=== PATIENT | male | born 1995 | race Caucasian/White ===

== ENCOUNTER 2021-02-27 17:13 | Emergency (ER) | payer BC, OTHER ==
[~2021-02-27] VITALS: Ht 175.3 cm; Wt 99.3 kg
--- NOTE | 2021-02-27 18:53 | ED Upper Extremity ---
General Chief Complaint: Laceration Stated Complaint: LT THUMB LAC Nursing Triage Note: Patient states he was cutting potatoes 3 hours ago and cut his left thumb with a knife. Patient is lethargic, states he has had 5 shots of Martiniquais Honey today. Source: patient Exam Limitations: intoxication History of Present Illness Date Seen by Provider: Feb 27, 2021 Time Seen by Provider: 16:15 Initial Comments This 25-year-old young man presents to the emergency room with a skin avulsion on the left thumb. He slipped while peeling potatoes with a knife. He was concerned about the extent of bleeding at the time of the injury. There is no bleeding at this time. He did drink alcohol prior to arrival and seems intoxicated but is alert and oriented. Allergies and Home Medications Allergies Coded Allergies: No Known Drug Allergies (Unverified , 02/27/21) Patient Home Medication List Home Medication List Reviewed: Yes Review of Systems Constitutional: see HPI EENTM: no symptoms reported Respiratory: no symptoms reported Cardiovascular: no symptoms reported Gastrointestinal: no symptoms reported Genitourinary: no symptoms reported Musculoskeletal: no symptoms reported Skin: see HPI Past Nvtwier-Fddctz-Zsbubs Hx Patient Social History Tobacco Use?: Yes Tobacco type used: Cigarettes Smoking Status: Current Everyday Smoker Use of E-Cig and/or Vaping dev: Yes Substance use?: No Alcohol Use?: Yes Alcohol type: Hard Liquor Alcohol Frequency: Daily Pt feels they are or have been: No Past Medical History Surgeries: No (none reported) Respiratory: No Cardiac: No Neurological: No Genitourinary: No Gastrointestinal: No Musculoskeletal: No Endocrine: No HEENT: No Cancer: No Physical Exam Vital Signs Vital Signs - First Documented 02/27/21 17:28 Temp 36.4 Pulse 93 Resp 16 B/P (MAP) 143/80 (101) Pulse Ox 98 O2 Delivery Room Air Capillary Refill : Less Than 3 Seconds Height, Weight, BMI Height: '" Weight: lbs. oz. kg; 32.00 BMI Method: General Appearance: WD/WN, other (Intoxicated) HEENT: normal ENT inspection Respiratory: no respiratory distress Hand: non-tender, normal ROM, Left (Minor skin avultion no longer bleeding) Procedures/Interventions Progress After discussing options with the patient. He elects to have the superficial skin flap removed and glue applied. The superficial skin was trimmed off with scissors. Wound was scrubbed with chlorhexidine and saline. There was no active bleeding. Glue was then applied over the top to protect the wound. Progress/Results/Core Measures Results/Orders Vital Signs/I&O Blood Pressure Mean: 101 Departure Impression Primary Impression: Skin avulsion Additional Impression: Alcohol intoxication Qualified Codes: F10.920 - Alcohol use, unspecified with intoxication, uncomplicated Disposition: 01 HOME, SELF-CARE Condition: Improved Departure-Patient Inst. Decision time for Depature: 18:51 Referrals: NO,LOCAL PHYSICIAN (PCP/Family) Primary Care Physician Patient Instructions: Laceration Repair With Glue (DC) Add. Discharge Instructions: Keep the wound clean and dry for the next few days. Allow the glue to slough off naturally. Do not pull the glue off as this may trigger more bleeding and pull off healing skin. You may cover the wound with a large Band-Aid, gauze, etc. Avoid contacting the glue with adhesives or solvents such as alcohol as this may soften the glue or cause it to dissolve. Monitor your wound for signs of infection such as increasing redness, increasing swelling, puslike drainage, etc. Return to care if you notice the symptoms. You may use Tylenol and/or ibuprofen for pain. All discharge instructions reviewed with patient and/or family. Voiced understanding. VIPUL CHAHAL MD Feb 27, 2021 18:53
[2021-02-27 18:58] VITALS: BP 143/80
== END 2021-02-27 18:58 | disposition home or self-care (01) ==
LOC: EDUNIT# 17:13 → ER FS 17:15
DX: S61.002A Unspecified open wound of left thumb without damage to nail, initial encounter (principal); F10.129 Alcohol abuse with intoxication, unspecified; F17.210 Nicotine dependence, cigarettes, uncomplicated; W26.0XXA Contact with knife, initial encounter

== ENCOUNTER 2022-04-18 15:04 | Emergency (ER) | payer SELFPAY ==
[~2022-04-18] VITALS: Ht 175.3 cm; Wt 97.5 kg
--- NOTE | 2022-04-18 15:28 | ED Chest Pain ---
General Chief Complaint: Chest Pain Stated Complaint: CHEST PAINS/SOB Nursing Triage Note: PT AMB TO RM 4 WITH COMPLAINT OF CP, COUGH. STATES PAIN STARTED TODAY. Source: patient Exam Limitations: no limitations History of Present Illness Date Seen by Provider: Apr 18, 2022 Time Seen by Provider: 15:28 Allergies and Home Medications Allergies Coded Allergies: No Known Drug Allergies (Unverified , 02/27/21) Past Qzazytn-Qdxmge-Wrzxjs Hx Patient Social History Tobacco Use?: Yes Tobacco type used: Cigarettes Smoking Status: Current Everyday Smoker Use of E-Cig and/or Vaping dev: Yes Substance use?: No Alcohol Use?: Yes Alcohol Frequency: Couple times a week Pt feels they are or have been: No Past Medical History Surgeries: No (none reported) Respiratory: No Cardiac: No Neurological: No Genitourinary: No Gastrointestinal: No Musculoskeletal: No Endocrine: No HEENT: No Cancer: No Physical Exam Vital Signs Vital Signs - First Documented 04/18/22 15:06 Temp 37.0 Pulse 87 Resp 27 B/P (MAP) 189/129 (149) Pulse Ox 97 O2 Delivery Room Air Capillary Refill : Less Than 3 Seconds Height, Weight, BMI Height: '" Weight: lbs. oz. kg; 31.00 BMI Method: Progress/Results/Core Measures Results/Orders Lab Results Laboratory Tests Test 04/18/22 15:20 04/18/22 15:37 Range/Units Influenza Type A (RT-PCR) Not Detected Not Detecte Influenza Type B (RT-PCR) Not Detected Not Detecte SARS-CoV-2 RNA (RT-PCR) Not Detected Not Detecte D-Dimer <= 0.27 0.00-0.49 UG/ML My Orders Orders - MOHAN MARIANO COOK [employer] Covid 19 Inhouse Test (04/18/22 15:14) Influenza A And B By Pcr (04/18/22 15:14) Fibrin Degradation Products (04/18/22 15:27) Chest 1 View, Ap/Pa Only (04/18/22 16:13) Rx-Albuterol Inhaler (Rx-Ventolin Hfa In (04/18/22 16:26) Vital Signs/I&O 04/18/22 15:06 Temp 37.0 Pulse 87 Resp 27 B/P (MAP) 189/129 (149) Pulse Ox 97 O2 Delivery Room Air Blood Pressure Mean: 149 Departure Impression Primary Impression: Asthma Additional Impression: Chest pain Disposition: 01 HOME, SELF-CARE Condition: Stable/Unchanged Departure-Patient Inst. Decision time for Depature: 16:46 Referrals: NO,LOCAL PHYSICIAN (PCP/Family) Primary Care Physician Patient Instructions: Asthma, Adult ED Add. Discharge Instructions: Plan: 1. Establish with a primary care provider of your choice. It would be beneficial for you to have a pulmonary function test. 2. Use albuterol 2 puffs every 4 hours as needed for shortness of breath and wheezing. 3. I strongly encourage you to quit smoking this will exacerbate your asthma and decrease your risk of developing COPD. 4. Take steroids daily as directed with food. This may help with some of the discomfort you are having. 5. If you have any new, concerning, worsening symptoms please return to the ER. All discharge instructions reviewed with patient and/or family. Voiced understanding. Scripts Methylprednisolone (Methylprednisolone Dose Pack) 4 Mg Tab.ds.pk 4 MG PO UD for 6 Days, #21 PKG 0 Refills PER DOSE PACK INSTRUCTIONS Prov: MOHAN MARIANO [employer] 04/18/22 MOHAN MARIANO [employer] Apr 18, 2022 15:28
[2022-04-18] MEDS ORDERED: RX-ALBUTEROL INHALER 8.5 GM HFA (PROAIR) IH STA (16:26)
--- NOTE | 2022-04-18 16:29 | Diagnostic Imaging Report ---
INDICATION: Chest pain. COMPARISON: None. FINDINGS: Single frontal view of the chest demonstrates normal heart size and pulmonary vascularity. The lungs are well aerated and clear. No large pleural effusion or pneumothorax is seen. The visualized osseous structures show no acute abnormalities. IMPRESSION: 1. No acute cardiopulmonary process. Dictated by: Dictated on workstation # [id number]
[2022-04-18] MEDS ORDERED: METH4TAB10 PO (16:48)
[2022-04-18 16:52] VITALS: BP 164/118
== END 2022-04-18 16:52 | disposition home or self-care (01) ==
LOC: EDUNIT# 15:04 → ER 15:06
DX: J45.909 Unspecified asthma, uncomplicated (principal); F17.210 Nicotine dependence, cigarettes, uncomplicated; Z20.822 Contact with and (suspected) exposure to COVID-19
CPT/HCPCS: 36415; 71045; 85379; 87636; 93005

== ENCOUNTER 2023-03-31 22:33 | Emergency (ER) | payer SELFPAY ==
[~2023-03-31] VITALS: Ht 175.2 cm; Wt 90.7 kg
[~2023-03-31 22:33] MED LIST: METH4TAB10 PO
[2023-03-31] MEDS ORDERED: ONDANSETRON INJECTION 4 MG/2 ML (SDV) ONE (23:32)
[2023-03-31] MEDS ORDERED: NS IV 1000 ML 1,000 ML IV STA (23:35)
[2023-03-31 23:45] LABS: BASOPHILS % (AUTO) 0 % (0-10); EOSINOPHILS # (AUTO) 0.1 10^3/uL (0.0-0.3); EOSINOPHILS % (AUTO) 1 % (0-10); HEMATOCRIT 46 % (40-54); HEMOGLOBIN 15.4 g/dL (13.3-17.7); LYMPHOCYTES # (AUTO) 1.8 10^3/uL (1.0-4.0); LYMPHOCYTES % (AUTO) 23 % (12-44); MEAN CORPUSCULAR HEMOGLOBIN 32 pg (25-34); MEAN CORPUSCULAR HGB CONC 33 g/dL (32-36); MEAN CORPUSCULAR VOLUME 95 fL (80-99); MEAN PLATELET VOLUME 9.2 fL (9.0-12.2); MONOCYTES # (AUTO) 0.8 10^3/uL (0.0-1.0); MONOCYTES % (AUTO) 10 % (0-12); NEUTROPHILS # (AUTO) 5.2 10^3/uL (1.8-7.8); NEUTROPHILS % (AUTO) 66 % (42-75); PLATELET COUNT 259 10^3/uL (130-400); WHITE BLOOD COUNT 7.9 10^3/uL (4.3-11.0)
[2023-03-31] MEDS ORDERED: ONDANSETRON INJECTION 4 MG/2 ML (SDV) IVP ONE (23:45)
[2023-03-31 23:48] LABS: ALBUMIN 4.5 GM/DL (3.2-4.5); CHLORIDE 108 MMOL/L (98-107); POTASSIUM 3.5 MMOL/L (3.6-5.0); SODIUM 143 MMOL/L (135-145)
[2023-03-31 23:49] LABS: CALCIUM 9.9 MG/DL (8.5-10.1)
[2023-03-31 23:51] LABS: GLUCOSE 76 MG/DL (70-105); TOTAL PROTEIN 7.5 GM/DL (6.4-8.2)
--- NOTE | 2023-03-31 23:51 | ED General ---
General Chief Complaint: Altered Mental Status Stated Complaint: BODYACHES/VOMITING Nursing Triage Note: PT RESPONSIVE TO VERBAL STIMULI; PTS GIRLFRIEND REPORTS FINDING PT WITH ALTERED LOC WHEN SHE CAME HOME FROM WORK; PT REPORTS THAT HE TAKES 30MG OXYCODONE AND HAS CONTINUED TO HAVE PAIN ALL OVER; PT DENIES ANY ADDITIONAL OXYCODONE DOSES BUT DOES ADVISE THAT HE DRANK SOME ALCOHOL TODAY; PT ABLE TO PROTECT OWN AIRWAY BUT NOTED TO BE LETHARGIC Source of Information: Patient Exam Limitations: Intoxication History of Present Illness Date Seen by Provider: Mar 31, 2023 Time Seen by Provider: 23:35 Initial Comments Here with report of concerns of withdrawal. Apparently he was triaged and then in the waiting room became unresponsive or nearly unresponsive requiring sternal rubs. He was brought to the bed. We had to assist him from the wheelchair to the bed and then he became a little bit more responsive. Reports that he is withdrawing from oxycodone and he has not had it in a couple of days. Does report vomiting and diarrhea. Admits to drinking alcohol tonight to help with the withdrawal symptoms. Was taking oxycodone 30s. Denies injury. Denies fever or chills. Denies breathing problems. Timing/Duration: 1-2 Days, Getting Worse Severity: Moderate Associated Systoms: No Chest Pain, No Cough, No Fever/Chills; Nausea/Vomiting; No Shortness of Air; Weakness Allergies and Home Medications Allergies Coded Allergies: No Known Drug Allergies (Unverified , 02/27/21) Patient Home Medication List Home Medication List Reviewed: Yes Clonidine HCl (Clonidine HCl) 0.1 Mg Tablet, 0.1 MG PO BID Prescribed by: FOREST CHRISTIANSON on 04/01/23 0148 Methylprednisolone (Methylprednisolone Dose Pack) 4 Mg Tab.ds.pk, 4 MG PO UD Prescribed by: MOHAN MARIANO on 04/18/22 1648 Review of Systems Review of Systems Constitutional: see HPI; No chills, No fever EENTM: No nose congestion, No throat pain Respiratory: No cough, No short of breath Cardiovascular: No chest pain Gastrointestinal: diarrhea, nausea, vomiting Genitourinary: no symptoms reported Musculoskeletal: no symptoms reported Psychiatric/Neurological: Weakness Past Xerxodg-Kduica-Ktsdpa Hx Patient Social History Tobacco Use?: Yes Tobacco type used: Cigarettes Smoking Status: Current Everyday Smoker Use of E-Cig and/or Vaping dev: Yes E-Cig or Vaping type used: Nicotine Substance use?: Yes Substance type: Marijuana Substance frequency: Daily Alcohol Use?: Yes Alcohol type: Beer, Hard Liquor Alcohol Frequency: Couple times a week Pt feels they are or have been: No Immunizations Up To Date First/Initial COVID19 Vaccinat: 2020 Second COVID19 Vaccination Oracio: 2020 Past Medical History Surgery/Hospitalization HX: ASTHMA Surgeries: No (none reported) Respiratory: No Cardiac: No Neurological: No Genitourinary: No Gastrointestinal: No Musculoskeletal: No Endocrine: No HEENT: No Cancer: No Family Medical History Reviewed Nursing Family Hx No Pertinent Family Hx Physical Exam Vital Signs Vital Signs - First Documented 03/31/23 23:09 Temp 37.2 Pulse 67 Resp 16 B/P (MAP) 138/82 (100) Pulse Ox 98 O2 Delivery Room Air Capillary Refill : Less Than 3 Seconds Height, Weight, BMI Height: '" Weight: lbs. oz. kg; 29.00 BMI Method: General Appearance: No Apparent Distress, WD/WN HEENT: PERRL/EOMI, Pharynx Normal, Moist Mucous Membranes, Other (Dilated pupils bilateral) Neck: Non Tender, Supple Respiratory: Lungs Clear, Normal Breath Sounds Cardiovascular: Regular Rate, Rhythm, No Murmur Gastrointestinal: Non Tender, Soft Back: Normal Inspection, No CVA Tenderness Neurologic/Psychiatric: Alert, Other (Sleepy but answers questions appropriately and follows commands) Skin: Normal Color, Warm/Dry Progress/Results/Core Measures Suspected Sepsis SIRS Temperature: Pulse: 67 Respiratory Rate: 16 Laboratory Tests 03/31/23 23:25: White Blood Count 7.9 Blood Pressure 138 /82 Mean: 100 Laboratory Tests 03/31/23 23:25: Creatinine 1.05, Platelet Count 259, Total Bilirubin 0.2 Results/Orders Lab Results Laboratory Tests Test 03/31/23 01:03 03/31/23 23:25 Range/Units Urine Color YELLOW Urine Clarity CLEAR Urine pH 6.0 5-9 Urine Specific [place] 1.020 1.016-1.022 Urine Protein NEGATIVE NEGATIVE Urine Glucose (UA) NEGATIVE NEGATIVE Urine Ketones TRACE H NEGATIVE Urine Nitrite NEGATIVE NEGATIVE Urine Bilirubin NEGATIVE NEGATIVE Urine Urobilinogen 0.2 < = 1.0 MG/DL Urine Leukocyte Esterase NEGATIVE NEGATIVE Urine RBC (Auto) NEGATIVE NEGATIVE Urine RBC 0-2 /HPF Urine WBC NONE /HPF Urine Squamous Epithelial Cells 0-2 /HPF Urine Renal Epithelial Cells NONE /HPF Urine Crystals PRESENT H /LPF Urine Calcium Oxalate Crystals MODERATE H /LPF Urine Bacteria NEGATIVE /HPF Urine Casts NONE /LPF Urine Mucus MODERATE H /LPF Urine Culture Indicated NO Urine Opiates Screen POSITIVE H NEGATIVE Urine Oxycodone Screen NEGATIVE NEGATIVE Urine Methadone Screen NEGATIVE NEGATIVE Urine Propoxyphene Screen NEGATIVE NEGATIVE Urine Barbiturates Screen NEGATIVE NEGATIVE Ur Tricyclic Antidepressants Screen NEGATIVE NEGATIVE Urine Phencyclidine Screen NEGATIVE NEGATIVE Urine Amphetamines Screen NEGATIVE NEGATIVE Urine Methamphetamines Screen POSITIVE H NEGATIVE Urine Benzodiazepines Screen NEGATIVE NEGATIVE Urine Cocaine Screen POSITIVE H NEGATIVE Urine Cannabinoids Screen POSITIVE H NEGATIVE White Blood Count 7.9 4.3-11.0 10^3/uL Red Blood Count 4.89 4.30-5.52 10^6/uL Hemoglobin 15.4 13.3-17.7 g/dL Hematocrit 46 40-54 % Mean Corpuscular Volume 95 80-99 fL Mean Corpuscular Hemoglobin 32 25-34 pg Mean Corpuscular Hemoglobin Concent 33 32-36 g/dL Red Cell Distribution Width 12.9 10.0-14.5 % Platelet Count 259 130-400 10^3/uL Mean Platelet Volume 9.2 9.0-12.2 fL Immature Granulocyte % (Auto) 0 % Neutrophils (%) (Auto) 66 42-75 % Lymphocytes (%) (Auto) 23 12-44 % Monocytes (%) (Auto) 10 0-12 % Eosinophils (%) (Auto) 1 0-10 % Basophils (%) (Auto) 0 0-10 % Neutrophils # (Auto) 5.2 1.8-7.8 10^3/uL Lymphocytes # (Auto) 1.8 1.0-4.0 10^3/uL Monocytes # (Auto) 0.8 0.0-1.0 10^3/uL Eosinophils # (Auto) 0.1 0.0-0.3 10^3/uL Basophils # (Auto) 0.0 0.0-0.1 10^3/uL Immature Granulocyte # (Auto) 0.0 0.0-0.1 10^3/uL Sodium Level 143 135-145 MMOL/L Potassium Level 3.5 L 3.6-5.0 MMOL/L Chloride Level 108 H 98-107 MMOL/L Carbon Dioxide Level 21 21-32 MMOL/L Anion Gap 14 5-14 MMOL/L Blood Urea Nitrogen 6 L 7-18 MG/DL Creatinine 1.05 0.60-1.30 MG/DL Estimat Glomerular Filtration Rate 100 BUN/Creatinine Ratio 6 Glucose Level 76 70-105 MG/DL Calcium Level 9.9 8.5-10.1 MG/DL Corrected Calcium 9.5 8.5-10.1 MG/DL Magnesium Level 2.0 1.6-2.4 MG/DL Total Bilirubin 0.2 0.1-1.0 MG/DL Aspartate Amino Transf (AST/SGOT) 25 5-34 U/L Alanine Aminotransferase (ALT/SGPT) 29 0-55 U/L Alkaline Phosphatase 60 40-136 U/L C-Reactive Protein High Sensitivity 0.06 0.00-0.50 MG/DL Total Protein 7.5 6.4-8.2 GM/DL Albumin 4.5 3.2-4.5 GM/DL Salicylates Level < 5.0 L 5.0-20.0 MG/DL Acetaminophen Level 27 10-30 UG/ML Serum Alcohol < 10 <10 MG/DL My Orders Orders - FOREST CHRISTIANSON MD Ondansetron Injection (Ondansetron Inj (03/31/23 23:32) Ondansetron Injection (Ondansetron Inj (03/31/23 23:45) Ns Iv 1000 Ml (Ns Iv 1000 Ml) (03/31/23 23:35) Ed Iv/Invasive Line Start (03/31/23 23:35) Acetaminophen (03/31/23 23:35) Alcohol (03/31/23 23:35) Cbc And Automated Diff (03/31/23 23:35) Comprehensive Metabolic Panel (03/31/23 23:35) Hs C Reactive Protein (03/31/23 23:35) Drug Screen Stat (Urine) (03/31/23 23:35) Magnesium (03/31/23 23:35) Salicylate (03/31/23 23:35) Ua Culture If Indicated (03/31/23 23:35) Ns Iv 1000 Ml (Ns Iv 1000 Ml) (04/01/23 01:45) Clonidine Tablet (Clonidine Tablet) (04/01/23 01:45) Medications Given in ED Current Medications Medications Dose Ordered Sig/Owen Route Start Time Stop Time Status Last Admin Dose Admin Clonidine HCl 0.1 mg ONCE ONCE PO 04/01/23 01:45 04/01/23 01:46 DC 04/01/23 02:13 0.1 MG Ondansetron HCl 8 mg ONCE ONCE IVP 03/31/23 23:45 03/31/23 23:46 DC 03/31/23 23:55 8 MG Sodium Chloride 1,000 ml @ 0 mls/hr Q0M ONCE IV 04/01/23 01:45 04/01/23 01:46 DC 04/01/23 02:12 1,000 MLS/HR Vital Signs/I&O 03/31/23 23:09 Temp 37.2 Pulse 67 Resp 16 B/P (MAP) 138/82 (100) Pulse Ox 98 O2 Delivery Room Air Capillary Refill : Less Than 3 Seconds Blood Pressure Mean: 100 Progress Note : Progress Note Seen and evaluated. IV, labs including CBC, CMP, Tylenol, salicylate, alcohol as well as UA and UDS ordered. Normal saline 1 L bolus, Zofran 8 mg IV ordered. Monitor patient. Differential diagnosis includes electrolyte abnormality, dehydration, toxic effect of benzodiazepines or alcohol 0140: Labs reviewed and Tylenol, salicylate and alcohol are negative. His UDS was positive for cocaine, methamphetamine, marijuana and opiates. CBC reviewed and is normal. Chemistry reviewed and potassium is 3.5 but otherwise normal with normal LFTs. UA shows trace ketones. He was somewhat confused earlier but is doing better now. I did discuss with him about addiction treatment services at [facility]. He did not know what to access for narcotic abuse. He would like to try that. His significant other is with him and they are both in agreement. We will repeat normal saline 1 L bolus due to ketones and give clonidine 0.1 mg p.o. now for the withdrawal. Given his mixed drug use over the last 2 days, Suboxone therapy to start here in the ED is not appropriate but could be started in the outpatient setting. I did discuss with him about this and encouraged him to avoid any other drugs. He agrees. Anticipate discharge after repeat fluid and clonidine and I will write clonidine prescription. 0249: Patient states he is feeling better and would like to go home. Discharged home with return precautions. I did strongly encourage him to call community health. Patient verbalized understanding of instructions and agreement with plan. Departure Impression Primary Impression: Narcotic withdrawal Additional Impression: Drug abuse Disposition: HOME, SELF-CARE Condition: Stable Departure-Patient Inst. Decision time for Depature: 02:49 Referrals: LEVY SEARS,LOCAL PHYSICIAN (PCP) Primary Care Physician Patient Instructions: ALCOHOL AND SUBSTANCE ABUSE, Prescription Opioid Use Disorder ED Add. Discharge Instructions: All discharge instructions reviewed with patient and/or family. Voiced understanding. Avoid narcotics and stopped taking or using any other illicit drugs. Follow-up with [facility] addiction treatment services for recheck and further evaluation. Call in the morning for appointment with addiction treatment services as they can help you with the narcotic withdrawal and get you set up in a program. Take medications as directed. Return for worse pain, fever, vomiting, weakness, breathing problems or other concerns as needed. Scripts Clonidine HCl (Clonidine HCl) 0.1 Mg Tablet 0.1 MG PO BID for 5 Days, #10 TAB Prov: FOREST CHRISTIANSON MD 04/01/23 FOREST CHRISTIANSON MD Mar 31, 2023 23:51
[2023-03-31 23:52] LABS: BILIRUBIN,TOTAL 0.2 MG/DL (0.1-1.0); CARBON DIOXIDE 21 MMOL/L (21-32)
[2023-03-31 23:54] LABS: ALKALINE PHOSPHATASE 60 U/L (40-136); CREATININE SERUM 1.05 MG/DL (0.60-1.30); GFR ESTIMATED 100
[2023-03-31 23:55] LABS: ACETAMINOPHEN 27 UG/ML (10-30)
[2023-03-31 23:56] LABS: BUN/CREATININE RATIO 6
[2023-03-31 23:57] LABS: SALICYLATE < 5.0 MG/DL (5.0-20.0)
[2023-03-31 23:58] LABS: ALANINE AMINOTRANSFERASE 29 U/L (0-55)
[2023-04-01 01:21] LABS: AMPHETAMINE SCREEN, URINE NEGATIVE (NEGATIVE); BARBITURATE SCREEN URINE NEGATIVE (NEGATIVE); CANNABINOID SCREEN, URINE POSITIVE (NEGATIVE); COCAINE SCREEN URINE POSITIVE (NEGATIVE); METHADONE STAT NEGATIVE (NEGATIVE); OPIATE SCREEN URINE POSITIVE (NEGATIVE); OXYCODONE STAT NEGATIVE (NEGATIVE); PROPOXYPHENE STAT NEGATIVE (NEGATIVE); TRICYCLIC ANTIDEPRESSANTS SCRE NEGATIVE (NEGATIVE)
[2023-04-01 01:22] LABS: BACTERIA,URINE NEGATIVE /HPF; BILIRUBIN,URINE NEGATIVE (NEGATIVE); CLARITY,URINE CLEAR; COLOR,URINE YELLOW; GLUCOSE, URINE (UA) NEGATIVE (NEGATIVE); KETONES,URINE TRACE (NEGATIVE); LEUKOCYTE ESTERASE ,URINE NEGATIVE (NEGATIVE); NITRITE,URINE NEGATIVE (NEGATIVE); PROTEIN,URINE NEGATIVE (NEGATIVE); RBC,URINE 0-2 /HPF; SQUAMOUS EPITHELIAL CELL,UR 0-2 /HPF
[2023-04-01 01:23] LABS: CALCIUM OXALATE CRYSTALS,UR MODERATE /LPF
[2023-04-01] MEDS ORDERED: NS IV 1000 ML 1,000 ML IV ONE (01:45)
[2023-04-01] MEDS ORDERED: cloNIDine 0.1 MG TABLET PO ONE (01:45)
[2023-04-01] MEDS ORDERED: CLN.1T PO (01:48)
[2023-04-01 02:56] VITALS: BP 133/96
== END 2023-04-01 02:56 | disposition home or self-care (01) ==
LOC: EDUNIT# 22:33 → ER 22:36
DX: F15.23 Other stimulant dependence with withdrawal (principal); F19.10 Other psychoactive substance abuse, uncomplicated; F17.210 Nicotine dependence, cigarettes, uncomplicated; F17.290 Nicotine dependence, other tobacco product, uncomplicated
CPT/HCPCS: 80053; 80306; 81000; 83735; 85025; 86141; 99284; G0480 ×3; 36415; 80320; 80329